=== PATIENT | female | born 1970 | race Caucasian/White ===

== ENCOUNTER 2018-03-04 18:10 | Emergency (ER) | payer MEDICAID ==
[~2018-03-04] VITALS: Ht 165.1 cm; Wt 85.0 kg
[2018-03-04] MEDS ORDERED: HYDROCODONE/ACETAMINOPHEN 5/325MG TABLET PO ONE (19:45)
[2018-03-04] MEDS ORDERED: LIDOCAINE HCL 1% 20ML VIAL (Pyxis) INJ INFIL ONE (19:45)
[2018-03-04] MEDS ORDERED: TETANUS, DIPHTHERIA, PERTUSSIS VAC/PF 0.5ML (>7YR OLD) IM ONE (23:30)
[2018-03-04 23:59] VITALS: BP 144/76
== END 2018-03-04 23:59 | disposition home or self-care (01) ==
LOC: ER 18:10
DX: S01.91XA Laceration without foreign body of unspecified part of head, initial encounter (principal); X58.XXXA Exposure to other specified factors, initial encounter; Y93.89 Activity, other specified; Y92.9 Unspecified place or not applicable
CPT/HCPCS: 12013; 70486; 81025; 90471; 90715; 99284; J3490

== ENCOUNTER 2022-05-20 11:57 | Emergency (ER) | payer MEDICAID ==
[~2022-05-20] VITALS: Ht 162.6 cm; Wt 89.0 kg
[2022-05-20 13:11] LABS: BASOPHILS % 0.2 % (0.0-2.0); HEMATOCRIT. 35.2 % (36.0-48.0); LYMPHOCYTES % 10.8 % (20.0-50.0); MEAN CORPUSCULAR HEMOGLOBIN 29.8 pg (28.0-32.0); MEAN CORPUSCULAR VOLUME 87.2 fL (81.0-99.0); MEAN PLATELET VOLUME 6.4 fl (7.4-10.4); MONOCYTES % 3.7 % (2.0-8.0); NEUTROPHILS % 85.3 % (40.0-76.0); PLATELET 407 x1000/uL (130-400); RED BLOOD CELL COUNT 4.03 mill/uL (4.2-5.4); RED CELL DISTRIBUTION WIDTH 13.5 % (11.6-14.6)
[2022-05-20 13:15] LABS: CHLORIDE 107 mEq/L (98-107)
[2022-05-20 13:54] LABS: CLARITY URINE CLOUDY (CLEAR); COLOR URINE YELLOW (YELLOW); KETONES URINE 1+ (NEGATIVE); LEUKOCYTE ESTERASE URINE 2+ (NEGATIVE); NITRITE URINE NEGATIVE (NEGATIVE); OCCULT BLOOD URINE 2+ (NEGATIVE); PH URINE 6.5 (4.5-8.0); PROTEIN URINE TRACE (NEGATIVE); SPECIFIC GRAVITY URINE 1.021 (1.005-1.030); UROBILINOGEN URINE 0.2 E.U./dL (0.2-1.0)
[2022-05-20] MEDS ORDERED: ONDANSETRON HCL 4MG/2ML INJ IV STA (14:39)
[2022-05-20] MEDS ORDERED: SODIUM CHLORIDE 0.9% 1,000 ML IV ONE (14:45)
[2022-05-20] MEDS ORDERED: CYCLOBENZAPRINE 10MG TABLET PO ONE (15:00)
[2022-05-20] MEDS ORDERED: KETOROLAC 30MG/ML VIAL IV ONE (15:00)
[2022-05-20] MEDS ORDERED: ONDA4TAB50 MT (17:02)
[2022-05-20 18:04] VITALS: BP 118/64
== END 2022-05-20 18:05 | disposition home or self-care (01) ==
LOC: ER 12:17
DX: R11.2 Nausea with vomiting, unspecified (principal); I49.9 Cardiac arrhythmia, unspecified; Z90.49 Acquired absence of other specified parts of digestive tract
CPT/HCPCS: 36415; 80053; 81003; 84484; 85025; 93005; 96361; 96374; 96375; 99284; J1885; J2405; J7030; Z7610